=== PATIENT | female | born 1965 | race Caucasian/White ===

== ENCOUNTER 2016-11-10 15:01 | Emergency (ER) | payer BC ==
[~2016-11-10] VITALS: Ht 162.6 cm; Wt 124.1 kg
[~2016-11-10 15:01] MED LIST: BENA40TA41 PO; OMEP40CA6 PO
[2016-11-10 15:10] VITALS: Ht 162.6 cm; Wt 124.1 kg
[2016-11-10] MEDS ORDERED: KETOROLAC 60 MG INJ IM STA (15:23)
--- NOTE | 2016-11-10 16:08 | RADRPT ---
PROCEDURE: US venous left lower extremity CLINICAL INDICATION: Left lower extremity pain and swelling. TECHNIQUE: Multiple longitudinal and transverse images of the left lower extremity veins were obta ined with deluna scale and color Doppler imaging. 2D grayscale imaging with compression, color Dopple r flow, and augmentation was performed. The calf veins were interrogated as well. COMPARISON: None available. FINDINGS: The left common femoral, superficial femoral, and popliteal veins are normally compressible througho ut. There is normal color Doppler flow within the vessels and all the vessels are augmentable. The c fpc veins are visualized and are equally unremarkable. IMPRESSION: 1. No evidence of a deep vein thrombosis within the left lower extremity. RPTAT: AA .Bayron Merchant MD, MD Date Time Electronically viewed and signed by .Bayron Merchant MD, on 11/10/2016 16:08 .P/
--- NOTE | 2016-11-10 16:18 | RADRPT ---
PROCEDURE: Left knee series. CLINICAL INDICATION: Left knee pain TECHNIQUE: Three views of the left knee. COMPARISON: Left knee series 04/23/2015 FINDINGS: There is normal mineralization and alignment of the left knee. No acute fracture or dislocation is seen. There is mild tricompartmental joint space narrowing with associated abundant tricompartmenta l osteophyte formation. There is questionable loose bodies within the joint space. There is no def inite joint effusion. The soft tissues are within normal limits. IMPRESSION: 1. No evidence of acute fracture or dislocation. 2. 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 3. Questionable loose bodies without evidence of joint effusion. RPTAT: KK .Jonas Michel MD, MD Date Time Electronically viewed and signed by .Jonas Michel MD, on 11/10/2016 16:18 .B/
[2016-11-10] MEDS ORDERED: IBUP-1542 PO (16:23)
[2016-11-10] MEDS ORDERED: HYDR-906 PO (16:23)
--- NOTE | 2016-11-10 16:43 | ERD ---
ER Documentation Chief Complaint Date/Time DATE: 11/10/16 TIME: 16:38 Chief Complaint LEFT KNEE PAIN X 2 DAYS HPI This is a 50-year-old female presents to the ER with left knee pain that has been going on for the last 2 days. Patient has a history of arthritis and states that her knee has been giving her problems lately. The pain is worse whenever she has to go upstairs. Recently the elevator near her dog got broke and she has been going up the stairs more often. Patient states that she tried putting a brace on it and she tried taking Aleve however did not work. Patient has been given tramadol for her pain however she does not like to take tramadol because it makes her too sleepy. Patient also complaining of lower leg swelling which is more severe than it usually gets. Patient denies any recent trauma. She has not seen an computer network support specialist for this. Patient does admit to slight numbness and tingling of her entire leg. She denies any back pain. ROS 12 point review of systems was done, all negative except per HPI. Medications Home Meds Active Scripts Ibuprofen* (Motrin*) 600 Mg Tab, 600 MG PO Q6, #30 TAB Prov:MEERA LANDERS 11/10/16 Hydrocodone/Acetaminophen ([place] 5-325 Tablet) 1 Each Tablet, 1 TAB PO Q6H Y for PAIN, #20 TAB Prov:MEERA LANDERS 11/10/16 Reported Medications Omeprazole* (Omeprazole*) 40 Mg Capsule.dr, 40 MG PO DAILY, CAP 09/08/14 Benazepril Hcl* (Benazepril Hcl*) 40 Mg Tablet, 40 MG PO DAILY, TAB 09/08/14 Allergies Allergies: Coded Allergies: Penicillins (Verified Allergy, Unknown, 04/23/15) aspirin (Verified Allergy, Unknown, 04/23/15) PMhx/Soc History of Surgery: Yes (hysterectomy 04, R knee 00, R hand carpal tunnel 94) Anesthesia Reaction: No Hx Neurological Disorder: No Hx Respiratory Disorders: No Hx Cardiac Disorders: Yes (HTN) Hx Psychiatric Problems: No Hx Miscellaneous Medical Probl: Yes (DM) Hx Alcohol Use: No Hx Substance Use: No Hx Tobacco Use: No Smoking Status: Never smoker Physical Exam Vitals Vital Signs Date Time Temp Pulse Resp B/P Pulse Ox O2 Delivery O2 Flow Rate FiO2 3/20/17 15:10 97.8 107 18 172/106 99 Physical Exam GENERAL: The patient is well developed and appropriate for usual state of health , in no apparent distress. HEENT: Atraumatic. CHEST: Clear to auscultation bilaterally. There are no rales, wheezes or rhonchi. HEART: Regular rate and rhythm. No murmurs, clicks, rubs or gallops. EXTREMITIES: Left Knee: patient is TTP at the anterior/medial joint line. Painful extension and flexion of knee. Pain with varus strain. significant swelling of the lower leg and foot. slight edema. +2 pedal pulses. NEURO: Alert and oriented. SKIN: The skin is warm and dry. Results 24 hrs Current Medications Medications (Trade) Dose Ordered Sig/Lin Route PRN Reason Start Time Stop Time Status Last Admin Dose Admin Ketorolac Tromethamine (Toradol) 60 mg ONCE STAT IM 11/10/16 15:23 11/10/16 15:25 DC 11/10/16 16:09 Procedures/MDM This is a 50-year-old female presents to the ER with left knee pain and swelling of her lower leg. Patient was examined by myself and by Dr. Ceballos. At this time there is no evidence of DVT. There was no evidence of fracture or dislocation. Patient may have arthrits of the knee. Patient had full range of motion of the knee and is neurovascularly intact. She will be sent home with ibuprofen with [place]. She was given a knee immobilizer. She was neurovascularly intact before and after immobilizer application. Patient is to follow-up with her primary care doctor within 1-2 days return to ER sooner if symptoms worsen. My medical decision making shared with the patient she understands and agrees with plan. Departure Diagnosis: Primary Impression: Knee pain Condition: Stable Patient Instructions: Knee Pain, Uncertain Cause Referrals: MARY FULLER MD Additional Instructions: Call your primary care doctor TOMORROW for an appointment during the next 1-2 days.See the doctor sooner or return here if your condition worsens before your appointment time. MEERA LANDERS Nov 10, 2016 16:43
== END 2016-11-10 17:31 | disposition home or self-care (01) ==
LOC: FTE 15:01
DX: M25.562 Pain in left knee (principal); E11.9 Type 2 diabetes mellitus without complications; I10 Essential (primary) hypertension
CPT/HCPCS: 29505; 73562; 93971; 96372; 99285; J1885

== ENCOUNTER → 2017-02-03 | Outpatient (CLI) | payer BC ==
[~2017-02-03] MED LIST changes: +HYDR-906 PO; +IBUP-1542 PO
--- NOTE | 2017-02-03 17:19 | RADRPT ---
PROCEDURE: XR Knees. CLINICAL INDICATION: Pain TECHNIQUE: Three views of the bilateral knees are available for review. COMPARISON: 11/10/2016 FINDINGS: Advanced tricompartmental knee arthrosis seen at both knees dominant at the medial femorotibial comp artment with [id number] apposition and genu varum alignment. Bulky osteophyte formation is seen a t the joint margins. There discontinued osteophytes versus intrarticular bodies noted medially. The re is no acute osseous abnormality or evidence of fractures. Osseous bodies is seen posterior to the knee, possibly within a popliteal cyst although incompletely assessed. IMPRESSION: 1. Tricompartmental arthrosis dominant at the medial femorotibial compartment and genu varum alignm ent bilaterally. 2. No acute osseous abnormality. 3. Intrarticular osseous bodies are seen bilaterally and additional osseous bodies possibly within a popliteal cyst on the right. RPTAT: VV .Michael Ricketts MD, MD Date Time Electronically viewed and signed by .Michael Ricketts MD, on 02/03/2017 17:19 .d/
== END | disposition home or self-care (01) ==
LOC: HKI 16:01
DX: M25.561 Pain in right knee (principal); M25.562 Pain in left knee
CPT/HCPCS: 73562; G0463